=== PATIENT | female | born 1980 | race Caucasian/White ===

== ENCOUNTER 2017-06-10 20:38 | Emergency (ER) | payer SELFPAY ==
[2017-06-10 20:45] VITALS: BP 120/89; PULSE 76; TEMP 97.9; BMI 39.3
--- NOTE | 2017-06-10 20:46 | PDOC ---
Rapid Medical Evaluation Time Seen by Provider: 06/10/17 20:40 Medical Evaluation: Allergies Allergy/AdvReac Type Severity Reaction Status Date / Time Pork/Porcine Containing Allergy Mild Swelling Verified 01/27/15 16:49 Products No Known Drug Allergies Allergy Verified 01/27/15 19:15 06/10/17 20:41 The patient presents with a chief complaint of: abdominal pain since last night. Admits to vomiting and nausea today. She rates her pain an 8/10. Was prescribed fluconazole for a yeast infection yesterday. I have performed a brief in-person evaluation of this patient; Pertinent physical exam findings: ambulatory, in no respiratory distress. TTP LLQ, suprapubic region. non-distended I have ordered the following: CBC, CMP, PT/INR, lipase UA, UC The patient will proceed to the ED for further evaluation.
[2017-06-10] MEDS ORDERED: ONDANSETRON 4 MG/2 ML VIAL IVPUSH ONE (20:59)
[2017-06-10] MEDS ORDERED: ONDANSETRON 4 MG/2 ML VIAL ONE (21:00)
[2017-06-10 21:26] LABS: BASO % 0.6 % (0-2.0); EOS % 1.4 % (0-4.5); HEMATOCRIT 38.4 % (32.4-45.2); HEMOGLOBIN 13.2 GM/dL (10.7-15.3); MCHC 34.5 g/dl (32.0-36.0); MEAN CELL VOLUME 86.8 fl (80-96); MEAN PLT VOLUME 8.2 fl (7.5-11.1); MONO % 5.2 % (3.8-10.2); NEUT % 65.8 % (42.8-82.8); PLATELET COUNT 352 K/MM3 (134-434); RBC 4.42 M/mm3 (3.60-5.2); RDW 13.6 % (11.6-15.6); WHITE BLOOD COUNT 14.4 K/mm3 (4.0-10.0)
[2017-06-10 21:41] LABS: INR 1.01 (0.82-1.09); PROTHROMBIN TIME (PATIENT) 11.4 SEC (9.98-11.88)
[2017-06-10 22:06] LABS: ANION GAP 14 (8-16); BILIRUBIN,TOTAL 0.3 mg/dL (0.2-1.0); BLOOD UREA NITROGEN 23 mg/dL (7-18); CALCIUM 8.7 mg/dL (8.5-10.1); CHLORIDE 105 mmol/L (98-107); CO2 22 mmol/L (21-32); CREATININE 0.8 mg/dL (0.55-1.02); GLUCOSE,RANDOM 120 mg/dL (74-106); SGPT/ALT 48 U/L (12-78); SODIUM 141 mmol/L (136-145)
[2017-06-10 22:08] LABS: ALK PHOS 161 U/L (45-117); TOT PROT 8.4 g/dl (6.4-8.2)
[2017-06-10 22:09] LABS: POTASSIUM 4.3 mmol/L (3.5-5.1); SGOT/AST 44 U/L (15-37)
--- NOTE | 2017-06-10 22:09 | PDOC ---
History of Present Illness - General History Source: Patient, Old Records Exam Limitations: No Limitations - History of Present Illness Initial Comments: 06/10/17 23:39 Patient is a 36 year old female with no significant past medical history who presents to the ED with complaints of who presents to the ED with complaints of dysuria that began 3 days ago. Patient reports experiencing gradual dysuria that began 3 days ago while at home with no signs of subsiding. She reports experiencing associated symptoms of nausea, vomiting, general malaise and general body aches. She reports going to a medical clinic earlier today, which notified the patient that she has yeast and was prescribed Fluconazole. Patient reports coming to the ED for further evaluation when symptoms progressed. Denies chest pain, Sob. Denies fevers, chills. Denies contact with sick individuals, out of state travelling. Denies vaginal bleeding. Denies any other symptoms. Allergies: Pork, No known drug allergies. Social History: No smoking. No alcohol. No illicit drugs. Surgical History: None PMD: Dr. Guajardo <Avery López - Last Filed: 06/10/17 23:39> - General History Source: Patient <Ankush Xiong - Last Filed: 06/11/17 00:42> - General Chief Complaint: Pain Stated Complaint: ABDOMINAL PAIN Time Seen by Provider: 06/10/17 20:40 Past History <Avery López - Last Filed: 06/10/17 23:39> - Past Medical History Asthma: No Cancer: No Cardiac Disorders: No COPD: No Diabetes: No HTN: No Seizures: No Thyroid Disease: No - Immunization History Immunization Up to Date: Yes - Suicide/Smoking/Psychosocial Hx Smoking History: Never smoked Have you smoked in the past 12 months: No Number of Cigarettes Smoked Daily: 0 Hx Alcohol Use: No Drug/Substance Use Hx: No Substance Use Type: None Hx Substance Use Treatment: No <Ankush Xiong - Last Filed: 06/11/17 00:42> - Past Medical History Allergies/Adverse Reactions: Allergies Allergy/AdvReac Type Severity Reaction Status Date / Time Pork/Porcine Containing Allergy Mild Swelling Verified 06/10/17 22:30 Products No Known Drug Allergies Allergy Verified 06/10/17 22:30 Home Medications: Ambulatory Orders levoFLOXacin [Levaquin -] 500 mg PO DAILY #7 tablet 06/11/17 Review of Systems - Review of Systems Able to Perform ROS?: Yes Comments:: 06/10/17 23:39 CONSTITUTIONAL: +Malaise. +General body aches. Absent: fever, no chills, no fatigue EYES: Absent: visual changes ENT: Absent: ear pain, no sore throat CARDIOVASCULAR: Absent: chest pain, no palpitations RESPIRATORY: Absent: cough, no SOB GI: +Nausea. +Vomiting. Absent: abdominal pain, no constipation, no diarrhea GENITOURINARY: Absent: dysuria, no frequency, no hematuria MUSCULOSKELETAL: Absent: back pain, no arthralgia, no myalgia SKIN: Absent: rash <Avery López - Last Filed: 06/10/17 23:39> *Physical Exam - Vital Signs Last Vital Signs Temp Pulse Resp BP Pulse Ox 97.9 F 76 18 120/89 98 06/10/17 20:43 06/10/17 20:43 06/10/17 20:43 06/10/17 20:43 06/10/17 20:43 - Physical Exam Comments: 06/10/17 23:39 GENERAL: +Mild distress. Well-appearing, well-nourished. No apparent distress. HEENT: Normocephalic, atraumatic. PERRL, EOM intact. CARDIOVASCULAR: Normal S1, S2. Regular rate and rhythm. PULMONARY: Clear to auscultation bilaterally. ABDOMEN: +SLight LLQ tenderness. Soft, non-distended,no rebounding, no guarding. EXTREMITIES: Normal ROM in all four extremities. No gross deformities. MUSCULOSKELETAL: +CVA tenderness. SKIN: Warm, dry. No rash NEUROLOGICAL: No focal neurological deficits. <Avery López - Last Filed: 06/10/17 23:39> - Vital Signs Last Vital Signs Temp Pulse Resp BP Pulse Ox 97.9 F 76 18 120/89 98 06/10/17 20:43 06/10/17 20:43 06/10/17 20:43 06/10/17 20:43 06/10/17 20:43 <Ankush Xiong - Last Filed: 06/11/17 00:42> ED Treatment Course - LABORATORY CBC & Chemistry Diagram: 06/10/17 21:17 06/10/17 21:17 - ADDITIONAL ORDERS Additional order review: Laboratory Results 06/10/17 06/10/17 06/10/17 22:19 22:19 21:17 PT with INR INR Sodium 141 Potassium 4.3 Chloride 105 Carbon Dioxide 22 Anion Gap 14 BUN 23 H Creatinine 0.8 Creat Clearance w eGFR > 60 Random Glucose 120 H Calcium 8.7 Total Bilirubin 0.3 AST 44 H ALT 48 Alkaline Phosphatase 161 H Total Protein 8.4 H Albumin 4.0 Lipase Serum , Qual Urine Color Sandra Urine Appearance Turbid Urine pH 5.0 D Ur Specific [place] 1.029 Urine Protein 2+ H Urine Glucose (UA) Negative Urine Ketones Negative Urine Blood 3+ H Urine Nitrite Negative Urine Bilirubin Negative Urine Urobilinogen Negative Ur Leukocyte Esterase Trace Urine WBC (Auto) 148 Urine RBC (Auto) 2714 Ur Epithelial Cells Many Urine Mucus Rare Urine HCG, Qual Negative 06/10/17 06/10/17 06/10/17 21:17 21:14 21:00 PT with INR 11.40 INR 1.01 Sodium Potassium Chloride Carbon Dioxide Anion Gap BUN Creatinine Creat Clearance w eGFR Random Glucose Calcium Total Bilirubin AST ALT Alkaline Phosphatase Total Protein Albumin Lipase 238 Serum , Qual Negative Urine Color Urine Appearance Urine pH Ur Specific [place] Urine Protein Urine Glucose (UA) Urine Ketones Urine Blood Urine Nitrite Urine Bilirubin Urine Urobilinogen Ur Leukocyte Esterase Urine WBC (Auto) Urine RBC (Auto) Ur Epithelial Cells Urine Mucus Urine HCG, Qual 06/10/17 21:17 RBC 4.42 MCV 86.8 MCHC 34.5 RDW 13.6 MPV 8.2 Neutrophils % 65.8 Lymphocytes % 27.0 D Monocytes % 5.2 Eosinophils % 1.4 D Basophils % 0.6 D - Medications Given in the ED: ED Medications Discontinued Medications Generic Name Dose Route Start Last Admin Trade Name Freq PRN Reason Stop Dose Admin Acetaminophen 650 mg 06/10/17 22:24 06/10/17 22:29 Tylenol - PO 06/10/17 22:25 650 mg ONCE ONE Administration Ceftriaxone Sodium 1,000 mg 06/10/17 22:24 06/10/17 22:29 Rocephin - IVPB 06/10/17 22:25 1,000 mg ONCE ONE Administration Ondansetron HCl 4 mg 06/10/17 20:59 06/10/17 21:17 Zofran Injection IVPUSH 06/10/17 21:00 4 mg ONCE ONE Administration <Avery López - Last Filed: 06/10/17 23:39> - LABORATORY CBC & Chemistry Diagram: 06/10/17 21:17 06/10/17 21:17 - ADDITIONAL ORDERS Additional order review: Laboratory Results 06/10/17 06/10/17 21:17 21:14 PT with INR 11.40 INR 1.01 Lipase 238 06/10/17 21:17 RBC 4.42 MCV 86.8 MCHC 34.5 RDW 13.6 MPV 8.2 Neutrophils % 65.8 Lymphocytes % 27.0 D Monocytes % 5.2 Eosinophils % 1.4 D Basophils % 0.6 D - Medications Given in the ED: ED Medications Discontinued Medications Generic Name Dose Route Start Last Admin Trade Name Freq PRN Reason Stop Dose Admin Ondansetron HCl 4 mg 06/10/17 20:59 06/10/17 21:17 Zofran Injection IVPUSH 06/10/17 21:00 4 mg ONCE ONE Administration <Ankush Xiong - Last Filed: 06/11/17 00:42> Medical Decision Making - Medical Decision Making 06/11/17 00:41 Dr. Xiong: The scribe's documentation has been prepared under my direction and personally reviewed by me in its entirery. I confirm that the note above accurately reflects all work, treatment, procedures, and medical decision making performed by me. <Ankush Xiong - Last Filed: 06/11/17 00:42> *DC/Admit/Observation/Transfer - Attestations Scribe Attestion: 06/10/17 23:39 Documentation prepared by Avery López, acting as medical program specialist for Ankush Xiong MD/DO. <Avery López - Last Filed: 06/10/17 23:39> - Discharge Dispostion Admit: No <Ankush Xiong - Last Filed: 06/11/17 00:42> Diagnosis at time of Disposition: Urinary tract infection - Discharge Dispostion Disposition: HOME Condition at time of disposition: Stable - Referrals Referrals: Joselyn Humphrey MD [Primary Care Provider] - - Patient Instructions Printed Discharge Instructions: DI for Urinary Tract Infection (UTI) Additional Instructions: Drink plenty of fluids. Follow up with your doctor. Take medication as directed. Print Language: MONTENEGRIN - Post Discharge Activity
[2017-06-10] MEDS ORDERED: ACETAMINOPHEN 325 MG TABLET (FP) ONE ×2 (22:24→22:27)
[2017-06-10] MEDS ORDERED: CEFTRIAXONE 1 GM/50 ML BAG ONE (22:24)
[2017-06-10] MEDS ORDERED: ACETAMINOPHEN 325 MG TABLET (FP) PO ONE (22:24)
[2017-06-10 22:38] LABS: URINE APPEARANCE TURBID; URINE BILIRUBIN NEGATIVE (<2.0 mg/dL); URINE BLOOD 3+ (NEGATIVE); URINE COLOR AMBER; URINE GLUCOSE (UA) NEGATIVE (NEGATIVE); URINE KETONE NEGATIVE (NEGATIVE); URINE LEUK ESTERASE TRACE (NEGATIVE); URINE NITRITE NEGATIVE (NEGATIVE); URINE UROBILINOGEN NEGATIVE mg/dL (0.2-1.0)
[2017-06-10 22:42] LABS: URINE PROTEIN 2+ (NEGATIVE)
[2017-06-10 22:48] LABS: EPI CELLS MANY /HPF (FEW); URINE MUCUS RARE
[2017-06-10] MEDS ORDERED: KETOROLAC TROMETHAMINE 30 MG/1 ML VIAL IVPUSH ONE (23:21)
[2017-06-10] MEDS ORDERED: SODIUM CHLORIDE 1,000 ML IV STA (23:21)
[2017-06-10] MEDS ORDERED: KETOROLAC TROMETHAMINE 30 MG/1 ML VIAL ONE (23:37)
== END 2017-06-11 01:08 | disposition home or self-care (01) ==
LOC: JER 20:38
PROC: 3E03329 Introduction of Other Anti-infective into Peripheral Vein, Percutaneous Approach (ICD-10-PCS; principal; 2017-06-10)
PROC: 3E0333Z Introduction of Anti-inflammatory into Peripheral Vein, Percutaneous Approach (ICD-10-PCS; 2017-06-10)
PROC: 3E033GC Introduction of Other Therapeutic Substance into Peripheral Vein, Percutaneous Approach (ICD-10-PCS; 2017-06-10)
DX: N39.0 Urinary tract infection, site not specified (principal)
CPT/HCPCS: 36415; 80053; 81003; 81015; 83690; 84703; 85025; 85610; 87086; 99282-25; J7030

== ENCOUNTER 2021-03-22 08:15 | Inpatient (IN) | payer OTHER ==
[2021-03-22] MEDS ORDERED: CITRIC ACID/SODIUM CITRATE 30 ML UNIT-DOSE CUP PO ONE (09:02)
[2021-03-22] MEDS ORDERED: ELECTROLYTE-148 SOLN 500 ML IV ONE (09:02)
[2021-03-22 09:03] VITALS: BMI 38.9
[2021-03-22] MEDS ORDERED: OXYTOCIN 20 UNITS in 0.9% NS 20 UNIT/1,000 ML INFUS.BAG IV ONE (09:17)
[2021-03-22] MEDS ORDERED: ceFAZolin SODIUM 1 GM VIAL ONE ×2 (09:21→17:58)
[2021-03-22] MEDS ORDERED: OXYTOCIN 10 UNITS/ML VIAL ONE (09:21)
[2021-03-22] MEDS ORDERED: PHENYLEPHRINE HCL 10 MG/1 ML SINGLE DOSE VIAL ONE (09:21)
[2021-03-22] MEDS ORDERED: KETOROLAC TROMETHAMINE 30 MG/1 ML VIAL ONE (09:21)
[2021-03-22] MEDS ORDERED: SODIUM CHLORIDE 0.9% P/F 10 ML VIAL IJ ONE ×2 (09:21→09:25)
[2021-03-22] MEDS ORDERED: ONDANSETRON 4 MG/2 ML VIAL ONE (09:21)
[2021-03-22] MEDS ORDERED: ePHEDrine SULFATE 50 MG/1 ML AMPULE ONE (09:22)
[2021-03-22] MEDS ORDERED: PROPOFOL 20 ML ONE (09:22)
[2021-03-22] MEDS ORDERED: SUCCINYLCHOLINE CHLORIDE 200 MG/10 ML SYRINGE ONE (09:22)
[2021-03-22] MEDS ORDERED: morphine SULFATE/PF 1 MG/2 ML (2cc Syringe - QUVA) ONE (09:22)
[2021-03-22] MEDS ORDERED: LIGASURE IMPACT TP ONE (09:50)
[2021-03-22 09:51] LABS: BASO % 0.9 % (0-2.0); EOS % 0.4 % (0-4.5); HEMATOCRIT 32.3 % (32.4-45.2); HEMOGLOBIN 11.3 GM/dL (10.7-15.3); LYMPH % 14.6 % (8-40); MCH 30.2 pg (25.7-33.7); MEAN CELL VOLUME 86.1 fl (80-96); MEAN PLT VOLUME 7.6 fl (7.5-11.1); MONO % 4.8 % (3.8-10.2); NEUT % 79.3 % (42.8-82.8); PLATELET COUNT 324 10^3/uL (134-434); RBC 3.76 M/mm3 (3.60-5.2); RDW 13.7 % (11.6-15.6); WHITE BLOOD COUNT 11.3 K/mm3 (4.0-10.0)
[2021-03-22 09:58] LABS: CALCIUM 8.2 mg/dL (8.5-10.1); INR 0.96 (0.83-1.09)
[2021-03-22 09:59] LABS: BLOOD UREA NITROGEN 9.8 mg/dL (7-18)
[2021-03-22 10:01] LABS: ACTIVATED PTT 28.5 SECONDS (25.2-36.5)
[2021-03-22 10:02] LABS: CREATININE 0.5 mg/dL (0.55-1.3)
[2021-03-22] MEDS ORDERED: ELECTROLYTE-148 SOLN 1,000 ML IV SCH (10:32)
[2021-03-22 10:53] LABS: HIV INTERPRETATION NEGATIVE (NEGATIVE)
[2021-03-22 11:53] LABS: CORD BASE EXCESS -3.8 mmol/L (0-2); CORD HCO3 22.5 mmHg (20-29); CORD PCO2 45.1 mmHg (30-78); CORD pH 7.315 (7.14-7.44)
[2021-03-22 11:54] LABS: CORD HCO3 23.8 mmHg (20-29); CORD PCO2 54.6 mmHg (30-78); CORD pH 7.257 (7.14-7.44)
[2021-03-22] MEDS ORDERED: SENNOSIDES/DOCUSATE COMBO (SENNA PLUS) TABLET (UD) PO PRN (11:55)
[2021-03-22] MEDS ORDERED: METHYLERGONOVINE MALEATE 0.2 MG/1 ML AMP IM PRN (11:55)
[2021-03-22] MEDS ORDERED: IBUPROFEN 800 MG/8 ML IJ IVPB PRN ×2 (11:55→12:06)
[2021-03-22] MEDS ORDERED: ONDANSETRON 4 MG/2 ML VIAL IVPUSH PRN (12:05)
[2021-03-22] MEDS ORDERED: ACETAMINOPHEN 1000 MG/100 ML BAG IVPB PRN (12:05)
[2021-03-22] MEDS: OXYTOCIN 20 UNITS in 0.9% NS 20 UNIT/1,000 ML INFUS.BAG IV SCH (13:00)
[2021-03-22] MEDS ORDERED: DEXTROSE 5%-WATER - 50 ML IVPB ONE (17:58)
[2021-03-22] MEDS ORDERED: CEFAZOLIN 1 GM/D5W 1 GM/50 ML BAG IVPB SCH (18:00)
[2021-03-22] MEDS: CEFAZOLIN 1 GM in DEXTROSE 5%-WATER - 1 GM/50 ML IVPB IVPB SCH (18:03)
[2021-03-22] MEDS ORDERED: oxyCODONE HCL 5 MG TABLET PO PRN (23:57)
[2021-03-23] MEDS ORDERED: ceFAZolin SODIUM 1 GM VIAL ONE ×3 (01:10→17:20)
[2021-03-23] MEDS ORDERED: DEXTROSE 5%-WATER - 50 ML IVPB ONE ×3 (01:10→17:20)
[2021-03-23] MEDS: CEFAZOLIN 1 GM in DEXTROSE 5%-WATER - 1 GM/50 ML IVPB IVPB SCH ×3 (01:24→17:26)
[2021-03-23] MEDS: IBUPROFEN 600 MG TABLET (FP) PO PRN ×3 (03:21→17:26)
[2021-03-23] MEDS: SIMETHICONE 80 MG TAB.CHEW (FP) PO PRN ×3 (03:21→17:27)
[2021-03-23] MEDS: oxyCODONE HCL 5 MG TABLET PO PRN ×3 (04:46→21:03)
[2021-03-23] MEDS: OXYTOCIN 20 UNITS in 0.9% NS 20 UNIT/1,000 ML INFUS.BAG IV SCH (09:11)
[2021-03-23] MEDS: ENOXAPARIN NA (PORCINE) 40 MG/0.4 ML DISP.SYRIN SQ SCH (10:48)
[2021-03-23] MEDS: PRENATAL VITAMINS W/ FOLIC ACID TABLET (FP) PO SCH (10:58)
[2021-03-23] MEDS ORDERED: BISACODYL 10 MG SUPP.RECT RC PRN (11:57)
[2021-03-23 13:33] LABS: BASO % 0.2 % (0-2.0); EOS % 0.8 % (0-4.5); HEMATOCRIT 32.5 % (32.4-45.2); HEMOGLOBIN 11.2 GM/dL (10.7-15.3); LYMPH % 15.2 % (8-40); MCH 30.3 pg (25.7-33.7); MCHC 34.5 g/dl (32.0-36.0); MEAN CELL VOLUME 87.8 fl (80-96); MEAN PLT VOLUME 7.4 fl (7.5-11.1); MONO % 6.6 % (3.8-10.2); NEUT % 77.2 % (42.8-82.8); PLATELET COUNT 292 10^3/uL (134-434); RDW 13.8 % (11.6-15.6); WHITE BLOOD COUNT 9.5 K/mm3 (4.0-10.0)
[2021-03-23] MEDS: ACETAMINOPHEN 325 MG TABLET (FP) PO PRN (18:43)
[2021-03-23] MEDS: FERROUS SO4 325 MG TABLET (FP) PO SCH (21:02)
[2021-03-24] MEDS: IBUPROFEN 600 MG TABLET (FP) PO PRN ×4 (03:20→22:48)
[2021-03-24] MEDS: SIMETHICONE 80 MG TAB.CHEW (FP) PO PRN ×2 (03:20→20:43)
[2021-03-24] MEDS: PRENATAL VITAMINS W/ FOLIC ACID TABLET (FP) PO SCH (09:08)
[2021-03-24] MEDS: FERROUS SO4 325 MG TABLET (FP) PO SCH ×2 (09:08→22:48)
[2021-03-24] MEDS: ENOXAPARIN NA (PORCINE) 40 MG/0.4 ML DISP.SYRIN SQ SCH (09:08)
[2021-03-24] MEDS: oxyCODONE HCL 5 MG TABLET PO PRN (20:43)
[2021-03-24] MEDS: OXYTOCIN 20 UNITS in 0.9% NS 20 UNIT/1,000 ML INFUS.BAG IV SCH (20:44)
[2021-03-24 20:58] VITALS: TEMP 98.2
[2021-03-24] MEDS: ACETAMINOPHEN 325 MG TABLET (FP) PO PRN (21:45)
[2021-03-25] MEDS: ACETAMINOPHEN 325 MG TABLET (FP) PO PRN (07:44)
[2021-03-25] MEDS: SIMETHICONE 80 MG TAB.CHEW (FP) PO PRN (07:45)
[2021-03-25 08:52] LABS: BASO % 0.4 % (0-2.0); EOS % 1.7 % (0-4.5); HEMOGLOBIN 10.8 GM/dL (10.7-15.3); LYMPH % 22.6 % (8-40); MCH 30.4 pg (25.7-33.7); MCHC 34.7 g/dl (32.0-36.0); MEAN CELL VOLUME 87.5 fl (80-96); MEAN PLT VOLUME 7.6 fl (7.5-11.1); NEUT % 69.3 % (42.8-82.8); PLATELET COUNT 319 10^3/uL (134-434); RBC 3.54 M/mm3 (3.60-5.2); RDW 13.9 % (11.6-15.6); WHITE BLOOD COUNT 8.8 K/mm3 (4.0-10.0)
[2021-03-25 09:30] VITALS: BP 108/70; PULSE 80
[2021-03-25] MEDS: IBUPROFEN 600 MG TABLET (FP) PO PRN (09:40)
[2021-03-25] MEDS: FERROUS SO4 325 MG TABLET (FP) PO SCH (09:40)
[2021-03-25] MEDS: PRENATAL VITAMINS W/ FOLIC ACID TABLET (FP) PO SCH (09:40)
[2021-03-25] MEDS: ENOXAPARIN NA (PORCINE) 40 MG/0.4 ML DISP.SYRIN SQ SCH (09:41)
== END 2021-03-25 15:15 | disposition home or self-care (01) | DRG 540 ==
LOC: JLDR 08:15 → J3W 13:00
PROVIDERS: ADMIT Obstetrics & Gynecology; ATTEND Obstetrics & Gynecology
PROC: 10D00Z1 Extraction of Products of Conception, Low, Open Approach (ICD-10-PCS; principal; 2021-03-22)
PROC: 0UT70ZZ Resection of Bilateral Fallopian Tubes, Open Approach (ICD-10-PCS; 2021-03-22)
PROC: 0UB00ZZ Excision of Right Ovary, Open Approach (ICD-10-PCS; 2021-03-22)
DX: O34.211 Maternal care for low transverse scar from previous cesarean delivery (principal); O99.214 Obesity complicating childbirth; E66.9 Obesity, unspecified; O99.892 Other specified diseases and conditions complicating childbirth; D27.0 Benign neoplasm of right ovary; Z30.2 Encounter for sterilization; Z37.0 Single live birth; Z3A.39 39 weeks gestation of pregnancy
CPT/HCPCS: 36415; 36600; 80048; 82803; 85025; 85610; 85730; 86780; 86850; 86900; 86901; 87389; 88302-TC; 88307-TC; C9803-CS; U0003; U0005

== ENCOUNTER 2023-10-14 03:51 | Emergency (ER) | payer OTHER ==
[2023-10-14 04:07] VITALS: BP 109/83; PULSE 62; RESP 20; TEMP 97.7; BMI 36.4
[2023-10-14] MEDS ORDERED: ACETAMINOPHEN INJECTION 100 ML IVPB ONE (04:32)
[2023-10-14] MEDS ORDERED: ONDANSETRON 4 MG/2 ML VIAL ONE (04:33)
[2023-10-14] MEDS ORDERED: FAMOTIDINE 20 MG/50 ML IVPB 20 MG/50 ML MG IVPB ONE (04:33)
[2023-10-14 04:38] LABS: BASO % 0.9 % (0-2.0); EOS % 1.5 % (0-4.5); HEMATOCRIT 33.4 % (32.4-45.2); HEMOGLOBIN 11.1 GM/dL (10.7-15.3); LYMPH % 24.7 % (8-40); MCH 25.5 pg (25.7-33.7); MCHC 33.3 g/dl (32.0-36.0); MEAN CELL VOLUME 76.7 fl (80-96); MEAN PLT VOLUME 7.8 fl (7.5-11.1); MONO % 5.1 % (3.8-10.2); NEUT % 67.8 % (42.8-82.8); PLATELET COUNT 422 10^3/uL (134-434); RBC 4.36 M/mm3 (3.60-5.2); RDW 16.3 % (11.6-15.6); WHITE BLOOD COUNT 12.5 K/mm3 (4.0-10.0)
[2023-10-14] MEDS: FAMOTIDINE 20 MG/50 ML IVPB 20 MG/50 ML MG IVPB ONE (04:59)
[2023-10-14] MEDS: ONDANSETRON 4 MG/2 ML VIAL IVPUSH ONE (04:59)
[2023-10-14] MEDS: LACTATED RINGERS SOLUTION 1000 ML INFUS.BAG IV ONE (04:59)
[2023-10-14] MEDS: ACETAMINOPHEN 1000 MG/100 ML BAG IVPB ONE (05:21)
[2023-10-14 05:38] LABS: PH,URINE 5.5 (5.0-8.0); URINE APPEARANCE CLEAR; URINE BILIRUBIN NEGATIVE (NEGATIVE); URINE COLOR YELLOW; URINE GLUCOSE (UA) NEGATIVE (NEGATIVE); URINE KETONE NEGATIVE (NEGATIVE); URINE LEUK ESTERASE NEGATIVE (NEGATIVE); URINE NITRITE NEGATIVE (NEGATIVE); URINE PROTEIN NEGATIVE (NEGATIVE); URINE UROBILINOGEN 0.2 mg/dL (0.2-1.0)
[2023-10-14 05:58] LABS: POTASSIUM 4.9 mmol/L (3.5-5.1)
[2023-10-14 06:02] LABS: ALBUMIN 3.9 g/dl (3.4-5.0); CALCIUM 8.7 mg/dL (8.5-10.1); MAGNESIUM 2.3 mg/dL (1.8-2.4)
[2023-10-14 06:03] LABS: BLOOD UREA NITROGEN 25.3 mg/dL (7-18)
[2023-10-14 06:05] LABS: CREATININE 0.7 mg/dL (0.55-1.3)
[2023-10-14 06:07] LABS: BILIRUBIN,TOTAL 0.3 mg/dL (0.2-1); TOT PROT 8.5 g/dl (6.4-8.2)
== END 2023-10-14 06:31 | disposition home or self-care (01) ==
LOC: JER 03:51
PROC: 3E033NZ Introduction of Analgesics, Hypnotics, Sedatives into Peripheral Vein, Percutaneous Approach (ICD-10-PCS; principal; 2023-10-14)
PROC: 3E033GC Introduction of Other Therapeutic Substance into Peripheral Vein, Percutaneous Approach (ICD-10-PCS; 2023-10-14)
PROC: 3E033GC Introduction of Other Therapeutic Substance into Peripheral Vein, Percutaneous Approach (ICD-10-PCS; 2023-10-14)
DX: R10.13 Epigastric pain (principal); R11.2 Nausea with vomiting, unspecified; A05.9 Bacterial foodborne intoxication, unspecified; Z20.822 Contact with and (suspected) exposure to COVID-19
CPT/HCPCS: 0241U-QW; 36415; 80053; 81003; 83690; 83735; 84703; 85025; 87086; 99284-25; J0131